=== PATIENT | male | born 1990 | race Caucasian/White ===

== ENCOUNTER 2020-06-04 18:57 | Emergency (ER) | payer MEDICAID, OTHER, SELFPAY ==
[~2020-06-04] VITALS: Ht 177.8 cm; Wt 70.7 kg
[2020-06-04] MEDS ORDERED: NS 1,000 ML IV ONE (19:40)
[2020-06-04 20:16] LABS: BASO # 0.1 10^3/uL (0.0-0.2); BASO % 1.1 % (0.0-1.0); EOS # 0.5 10^3/uL (0.0-0.5); EOS % 5.2 % (0.0-3.0); HEMATOCRIT 39.6 % (42.0-52.0); LYMPH # 2.2 10^3/uL (1.5-5.0); LYMPH % 21.9 % (24.0-44.0); MEAN CORPUSCULAR HEMOGLOBIN 29.4 pg (27.0-33.0); MEAN CORPUSCULAR HGB CONC 32.8 g/dl (32.0-36.5); MEAN CORPUSCULAR VOLUME 89.6 fl (80.0-96.0); MONO # 0.8 10^3/uL (0.0-0.8); MONO % 8.4 % (2.0-8.0); NEUTROPHILS # 6.3 10^3/uL (1.5-8.5); NEUTROPHILS % 63.1 % (36.0-66.0); PLATELET COUNT, AUTOMATED 354 10^3/uL (150-450); RED BLOOD COUNT 4.42 10^6/uL (4.30-6.10); WHITE BLOOD COUNT 9.9 10^3/uL (4.0-10.0)
[2020-06-04 20:25] LABS: BLOOD UREA NITROGEN 16 MG/DL (7-18); CARBON DIOXIDE LEVEL 32 MEQ/L (21-32); CHLORIDE LEVEL 104 MEQ/L (98-107); GLOMERULAR FILTRATION RATE > 60.0 (>60); GLUCOSE, FASTING 95 MG/DL (70-100); POTASSIUM SERUM 4.3 MEQ/L (3.5-5.1); SODIUM LEVEL 139 MEQ/L (136-145)
[2020-06-04] MEDS ORDERED: DALBAVANCIN 1,500 MG in D5W 250 ML IV ONE (22:30)
[2020-06-04 23:50] VITALS: BP 125/73
== END 2020-06-04 23:52 | disposition home or self-care (01) ==
LOC: M ED 18:57
DX: L03.116 Cellulitis of left lower limb (principal); F19.10 Other psychoactive substance abuse, uncomplicated
CPT/HCPCS: 80048; 83605; 85025; 87040; 87077; 87186; 93970; 96360; 96365; 99284; J0875

== ENCOUNTER 2022-06-26 11:16 | Inpatient (IN) | payer SELFPAY ==
[2022-06-26] VITALS (7 sets, daily range): BP systolic 119–141; BP diastolic 67–80; O2SAT 95–97
[~2022-06-26] VITALS: Ht 177.8 cm; Wt 76.1 kg
[2022-06-26] MEDS: NICOTINE 14 MG/24 HR TRANSDERMAL TD SCH (09:00)
[2022-06-26] MEDS ORDERED: ONDANSETRON 4MG 2ML VIAL IV ONE (11:35)
[2022-06-26] MEDS ORDERED: KETOROLAC 30 MG/ML 1ML VIAL IV ONE ×2 (11:35→18:00)
[2022-06-26] MEDS ORDERED: MORPHINE 4 MG/ML 1ML VIAL IV PRN (11:35)
[2022-06-26 11:58] LABS: VENOUS BASE EXCESS 0.6 (-2.0-2.0); VENOUS HCO3 26.6 MEQ/L (23.0-27.0); VENOUS O2 SATURATION 98.5 % (60.0-80.0); VENOUS PARTIAL PRESSURE CO2 48.3 mmHg (38.0-50.0); VENOUS PARTIAL PRESSURE O2 143.4 mmHg (30.0-50.0); VENOUS PH 7.359 UNITS (7.330-7.430); VENOUS TOTAL CO2 28.1 MEQ/L (24.0-28.0)
[2022-06-26 12:09] LABS: BASO # 0.2 10^3/uL (0.0-0.2); EOS # 0.7 10^3/uL (0.0-0.5); EOS % 4.1 % (0.0-3.0); HEMATOCRIT 38.8 % (42.0-52.0); HEMOGLOBIN 12.5 g/dl (13.5-17.5); LYMPH # 2.3 10^3/uL (1.5-5.0); LYMPH % 13.1 % (24.0-44.0); MEAN CORPUSCULAR HEMOGLOBIN 27.7 pg (27.0-33.0); MEAN CORPUSCULAR HGB CONC 32.2 g/dl (32.0-36.5); MONO # 1.3 10^3/uL (0.0-0.8); MONO % 7.2 % (2.0-8.0); NEUTROPHILS # 13.2 10^3/uL (1.5-8.5); NEUTROPHILS % 73.9 % (36.0-66.0); PLATELET COUNT, AUTOMATED 498 10^3/uL (150-450); RED BLOOD COUNT 4.51 10^6/uL (4.30-6.10); WHITE BLOOD COUNT 17.9 10^3/uL (4.0-10.0)
[2022-06-26 12:26] LABS: INR 1.06; PARTIAL THROMBOPLASTIN TIME 26.8 SECONDS (24.8-34.2)
[2022-06-26 12:30] LABS: AMYLASE 21 U/L (30-118)
[2022-06-26] MEDS ORDERED: MORPHINE 10 MG/ML 1ML VIAL IM ONE (12:30)
[2022-06-26 12:31] LABS: ALBUMIN 3.2 G/DL (3.2-5.2); ALKALINE PHOSPHATASE 106 U/L (46-116); ALT/SGPT 33 U/L (7.0-40); AST/SGOT 37 U/L (<34); BILIRUBIN,DIRECT 0.4 MG/DL (<0.4); BILIRUBIN,TOTAL 0.7 MG/DL (0.3-1.2); BLOOD UREA NITROGEN 11 MG/DL (9-23); CALCIUM LEVEL 8.3 MG/DL (8.5-10.1); CARBON DIOXIDE LEVEL 27 MMOL/L (20-31); CHLORIDE LEVEL 104 MMOL/L (98-107); CREATININE FOR GFR 0.65 MG/DL (0.70-1.30); GLOMERULAR FILTRATION RATE > 60.0 (>60); GLUCOSE, FASTING 112 MG/DL (60-100); POTASSIUM SERUM 4.1 MMOL/L (3.5-5.1); SODIUM LEVEL 136 MMOL/L (136-145); TOTAL PROTEIN 7.5 G/DL (5.7-8.2)
[2022-06-26] MEDS ORDERED: ISOVUE-370 76% 100ML VIAL As Ordered ONE (12:31)
[2022-06-26] MEDS ORDERED: PIPERACILLIN/TAZOBACTAM SOD 3.375 GM in D5W MINI-BAG PLUS 50 ML IV ONE (12:40)
[2022-06-26] MEDS ORDERED: VANCOMYCIN HCL 1,250 MG in NS 250 ML IV ONE (13:35)
[2022-06-26] MEDS ORDERED: VANCOMYCIN HCL 500 MG in D5W MINI-BAG PLUS 100 ML IV ONE ×2 (14:00→16:00)
[2022-06-26] MEDS ORDERED: VANCOMYCIN HCL 750 MG, VIAL MATE ADAPTER 1 EACH in D5W 250 ML IV ONE ×2 (14:00→16:00)
[2022-06-26 14:02] LABS: RSV AMPLIFICATION NEGATIVE (NEGATIVE)
[2022-06-26] MEDS ORDERED: NS 1,000 ML IV ONE ×2 (14:20→15:00)
[2022-06-26] MEDS ORDERED: MOM 30ML SUSPENSION UDC PO PRN (15:00)
[2022-06-26] MEDS ORDERED: ACETAMINOPHEN TAB 650MG DOSE (2X325MG) PO PRN (15:00)
[2022-06-26] MEDS ORDERED: SENOKOT S TAB PO PRN (15:00)
[2022-06-26] MEDS ORDERED: MIRALAX *UNIT DOSE* 17GM PACKET PO PRN (15:00)
[2022-06-26 15:25] LABS: LDH LACTATE DEHYDROGENASE 177 U/L (120-246)
[2022-06-26 15:26] LABS: CPK CREATINE PHOSPHOKINASE 288 U/L (46-171)
[2022-06-26] MEDS ORDERED: BISACODYL 10MG SUPP PR PRN (17:25)
[2022-06-26] MEDS ORDERED: PERCOCET 5MG/325MG TAB PO PRN (17:25)
[2022-06-26] MEDS ORDERED: LEVALBUTEROL 1.25MG 0.5ML CONCENTRATE NEB NEB PRN (17:25)
[2022-06-26 18:38] LABS: PH BODY FLUID 6.959 UNITS (NOT ESTABLISHED); SOURCE, BODY FLUID pH PLEURAL
[2022-06-26 18:42] LABS: SOURCE, BODY FLUID ALBUMIN PLEURAL
[2022-06-26 18:43] LABS: APPEARANCE, BODY FLUID CLOUDY (CLEAR); PLEURAL FL COLOR AMBER (COLORLESS); SOURCE, BODY FLUID PLEURAL
[2022-06-26 18:47] LABS: SOURCE, BODY FLUID GLUCOSE PLEURAL; SOURCE, BODY FLUID TRIG PLEURAL; TRIGLYCERIDE, BODY FLUID 26 MG/DL (NOT ESTABLISHED)
[2022-06-26 18:49] LABS: AMYLASE, BODY FLUID < 20 U/L (NOT ESTABLISHED); CHOLESTEROL, BODY FLUID 65 MG/DL (NOT ESTABLISHED); SOURCE, BODY FLUID AMYLASE PLEURAL; SOURCE, BODY FLUID CHOL PLEURAL; SOURCE, BODY FLUID TOT PROTEIN PLEURAL; TOTAL PROTEIN, BODY FLUID 5.8 G/DL (NOT ESTABLISHED)
[2022-06-26] MEDS: PIPERACILLIN/TAZOBACTAM SOD 3.375 GM in D5W MINI-BAG PLUS 50 ML IV SCH (18:50)
[2022-06-26] MEDS: KETOROLAC 30 MG/ML 1ML VIAL IV SCH ×2 (18:50→23:41)
[2022-06-26] MEDS ORDERED: HOME MED LIST COMPLETE! XX SCH (18:50)
[2022-06-26] MEDS: PERCOCET 5MG/325MG TAB PO PRN (18:53)
[2022-06-26 18:58] LABS: LDH, BODY FLUID > 700 U/L (NOT ESTABLISHED); SOURCE, BODY FLUID LDH PLEURAL
[2022-06-26] MEDS: LEVALBUTEROL 1.25MG 0.5ML CONCENTRATE NEB NEB SCH (20:20)
[2022-06-26] MEDS: guaiFENesin ER 600 MG TAB PO SCH (21:05)
[2022-06-26] MEDS: DOCUSATE SODIUM 100MG CAPSULE PO SCH (21:05)
[2022-06-27] VITALS (28 sets, daily range): BP systolic 108–133; BP diastolic 72–86; O2SAT 80–100
[2022-06-27] MEDS: LEVALBUTEROL 1.25MG 0.5ML CONCENTRATE NEB NEB SCH ×4 (01:22→21:12)
[2022-06-27] MEDS: PIPERACILLIN/TAZOBACTAM SOD 3.375 GM in D5W MINI-BAG PLUS 50 ML IV SCH ×3 (01:56→13:54)
[2022-06-27] MEDS: PERCOCET 5MG/325MG TAB PO PRN ×3 (01:59→19:59)
[2022-06-27] MEDS ORDERED: VANCOMYCIN HCL 1,000 MG, VIAL MATE ADAPTER 1 EACH in NS 250 ML IV SCH (03:00)
[2022-06-27 05:58] LABS: BASO # 0.1 10^3/uL (0.0-0.2); BASO % 0.6 % (0.0-1.0); EOS # 0.3 10^3/uL (0.0-0.5); EOS % 1.5 % (0.0-3.0); HEMATOCRIT 40.4 % (42.0-52.0); LYMPH # 1.4 10^3/uL (1.5-5.0); LYMPH % 7.2 % (24.0-44.0); MEAN CORPUSCULAR HGB CONC 32.2 g/dl (32.0-36.5); MEAN CORPUSCULAR VOLUME 87.1 fl (80.0-96.0); MONO # 1.1 10^3/uL (0.0-0.8); MONO % 5.9 % (2.0-8.0); NEUTROPHILS # 16.2 10^3/uL (1.5-8.5); NEUTROPHILS % 84.2 % (36.0-66.0); RED BLOOD COUNT 4.64 10^6/uL (4.30-6.10)
[2022-06-27 06:17] LABS: PLATELET COUNT, AUTOMATED 351 10^3/uL (150-450); WHITE BLOOD COUNT 19.2 10^3/uL (4.0-10.0)
[2022-06-27 06:23] LABS: BLOOD UREA NITROGEN 11 MG/DL (9-23); CALCIUM LEVEL 7.8 MG/DL (8.5-10.1); CARBON DIOXIDE LEVEL 26 MMOL/L (20-31); CHLORIDE LEVEL 104 MMOL/L (98-107); CREATININE FOR GFR 0.67 MG/DL (0.70-1.30); GLOMERULAR FILTRATION RATE > 60.0 (>60); GLUCOSE, FASTING 103 MG/DL (60-100); POTASSIUM SERUM 3.8 MMOL/L (3.5-5.1); SODIUM LEVEL 136 MMOL/L (136-145)
[2022-06-27] MEDS: KETOROLAC 30 MG/ML 1ML VIAL IV SCH ×4 (06:24→23:08)
[2022-06-27] MEDS: NICOTINE 14 MG/24 HR TRANSDERMAL TD SCH (08:13)
[2022-06-27] MEDS: PANTOPRAZOLE 40MG TAB (PROTONIX) PO SCH (08:13)
[2022-06-27] MEDS: guaiFENesin ER 600 MG TAB PO SCH ×2 (08:13→20:10)
[2022-06-27] MEDS: DOCUSATE SODIUM 100MG CAPSULE PO SCH ×2 (08:14→20:10)
[2022-06-27] MEDS: ENOXAPARIN 40MG/0.4ML SYRINGE (J1650 PER 10MG) SC SCH (08:14)
[2022-06-27 11:35] LABS: BARBITURATES URINE NEGATIVE (NEGATIVE); METHADONE URINE NEGATIVE (NEGATIVE)
[2022-06-27 11:36] LABS: BENZODIAZEPINES URINE NEGATIVE (NEGATIVE); PHENCYCLIDINE URINE NEGATIVE (NEGATIVE)
[2022-06-27 11:38] LABS: AMPHETAMINES LEVEL URINE POSITIVE (NEGATIVE); CANNABINOIDS URINE POSITIVE (NEGATIVE); COCAINE METABOLITE URINE POSITIVE (NEGATIVE); OPIATES URINE POSITIVE (NEGATIVE)
[2022-06-27] MEDS ORDERED: VANCOMYCIN HCL 750 MG, VIAL MATE ADAPTER 1 EACH in D5W 250 ML IV SCH ×4 (12:00)
[2022-06-27] MEDS: ONDANSETRON 4MG 2ML VIAL IV PRN ×3 (13:54→23:17)
[2022-06-27] MEDS: VANCOMYCIN HCL 1,000 MG, VIAL MATE ADAPTER 1 EACH in D5W 250 ML IV SCH ×2 (16:58→23:08)
[2022-06-27] MEDS ORDERED: NS 1,000 ML IV ONE (17:00)
[2022-06-27] MEDS ORDERED: NS 1,000 ML IV SCH (18:00)
[2022-06-27] MEDS: PIPERACILLIN/TAZOBACTAM SOD 4.5 GM in D5W MINI-BAG PLUS 50 ML IV SCH (20:01)
[2022-06-28] VITALS (17 sets, daily range): BP systolic 106–130; BP diastolic 60–79; O2SAT 91–96
[2022-06-28] MEDS: PERCOCET 5MG/325MG TAB PO PRN ×3 (00:11→20:26)
[2022-06-28] MEDS ORDERED: PROMETHAZINE 25MG/ML 1ML VIAL IV ONE (01:15)
[2022-06-28] MEDS: PIPERACILLIN/TAZOBACTAM SOD 4.5 GM in D5W MINI-BAG PLUS 50 ML IV SCH ×4 (02:05→20:24)
[2022-06-28] MEDS: LEVALBUTEROL 1.25MG 0.5ML CONCENTRATE NEB NEB SCH ×4 (02:42→20:34)
[2022-06-28] MEDS: KETOROLAC 30 MG/ML 1ML VIAL IV SCH ×3 (05:05→18:11)
[2022-06-28] MEDS: ONDANSETRON 4MG 2ML VIAL IV PRN (06:00)
[2022-06-28 07:13] LABS: BASO # 0.1 10^3/uL (0.0-0.2); BASO % 0.3 % (0.0-1.0); EOS # 0.1 10^3/uL (0.0-0.5); EOS % 0.7 % (0.0-3.0); HEMATOCRIT 36.3 % (42.0-52.0); LYMPH # 1.3 10^3/uL (1.5-5.0); LYMPH % 7.9 % (24.0-44.0); MEAN CORPUSCULAR HGB CONC 33.1 g/dl (32.0-36.5); MEAN CORPUSCULAR VOLUME 84.6 fl (80.0-96.0); MONO # 0.9 10^3/uL (0.0-0.8); MONO % 5.7 % (2.0-8.0); NEUTROPHILS # 13.5 10^3/uL (1.5-8.5); PLATELET COUNT, AUTOMATED 399 10^3/uL (150-450); RED BLOOD COUNT 4.29 10^6/uL (4.30-6.10); WHITE BLOOD COUNT 15.9 10^3/uL (4.0-10.0)
[2022-06-28] MEDS: VANCOMYCIN HCL 1,000 MG, VIAL MATE ADAPTER 1 EACH in D5W 250 ML IV SCH ×2 (07:41→16:16)
[2022-06-28 07:44] LABS: VANCOMYCIN LEVEL TROUGH 10.4 UG/ML (10.0-20.0)
[2022-06-28 07:45] LABS: BLOOD UREA NITROGEN 8 MG/DL (9-23); CARBON DIOXIDE LEVEL 31 MMOL/L (20-31); CHLORIDE LEVEL 101 MMOL/L (98-107); CREATININE FOR GFR 0.57 MG/DL (0.70-1.30); GLOMERULAR FILTRATION RATE > 60.0 (>60); GLUCOSE, FASTING 96 MG/DL (60-100); POTASSIUM SERUM 3.3 MMOL/L (3.5-5.1); SODIUM LEVEL 136 MMOL/L (136-145)
[2022-06-28] MEDS ORDERED: METHADONE 5MG TAB PO SCH (09:00)
[2022-06-28] MEDS: NICOTINE 14 MG/24 HR TRANSDERMAL TD SCH (09:30)
[2022-06-28] MEDS: METOCLOPRAMIDE INJ 10MG/2ML VIAL IV SCH ×3 (09:30→20:24)
[2022-06-28] MEDS: DOCUSATE SODIUM 100MG CAPSULE PO SCH ×2 (09:31→20:25)
[2022-06-28] MEDS: PANTOPRAZOLE 40MG TAB (PROTONIX) PO SCH (09:31)
[2022-06-28] MEDS: guaiFENesin ER 600 MG TAB PO SCH ×2 (09:31→20:27)
[2022-06-28] MEDS: ENOXAPARIN 40MG/0.4ML SYRINGE (J1650 PER 10MG) SC SCH (09:31)
[2022-06-28] MEDS: KCL 40MEQ IN D5/0.45NS 1000ML 1,000 ML IV SCH ×2 (09:31→22:15)
[2022-06-28] MEDS ORDERED: METHADONE 10MG TAB PO ONE (10:20)
[2022-06-29] VITALS (11 sets, daily range): BP systolic 113–127; BP diastolic 69–82; O2SAT 95–100
[2022-06-29] MEDS: KETOROLAC 30 MG/ML 1ML VIAL IV SCH ×4 (00:41→17:59)
[2022-06-29] MEDS: VANCOMYCIN HCL 1,000 MG, VIAL MATE ADAPTER 1 EACH in D5W 250 ML IV SCH (00:41)
[2022-06-29] MEDS: PERCOCET 5MG/325MG TAB PO PRN ×3 (00:44→20:33)
[2022-06-29] MEDS: LEVALBUTEROL 1.25MG 0.5ML CONCENTRATE NEB NEB SCH ×4 (01:46→20:29)
[2022-06-29] MEDS: PIPERACILLIN/TAZOBACTAM SOD 4.5 GM in D5W MINI-BAG PLUS 50 ML IV SCH ×4 (02:03→21:19)
[2022-06-29] MEDS: METOCLOPRAMIDE INJ 10MG/2ML VIAL IV SCH ×4 (02:03→20:33)
[2022-06-29 07:47] LABS: BASO # 0.1 10^3/uL (0.0-0.2); BASO % 0.5 % (0.0-1.0); EOS # 0.3 10^3/uL (0.0-0.5); EOS % 2.2 % (0.0-3.0); HEMATOCRIT 33.7 % (42.0-52.0); LYMPH # 1.9 10^3/uL (1.5-5.0); LYMPH % 14.1 % (24.0-44.0); MEAN CORPUSCULAR HEMOGLOBIN 28.1 pg (27.0-33.0); MEAN CORPUSCULAR HGB CONC 32.6 g/dl (32.0-36.5); NEUTROPHILS # 10.4 10^3/uL (1.5-8.5); NEUTROPHILS % 75.5 % (36.0-66.0); PLATELET COUNT, AUTOMATED 406 10^3/uL (150-450); RED BLOOD COUNT 3.92 10^6/uL (4.30-6.10); WHITE BLOOD COUNT 13.8 10^3/uL (4.0-10.0)
[2022-06-29 08:12] LABS: BLOOD UREA NITROGEN 5 MG/DL (9-23); CALCIUM LEVEL 7.8 MG/DL (8.5-10.1); CARBON DIOXIDE LEVEL 28 MMOL/L (20-31); CHLORIDE LEVEL 108 MMOL/L (98-107); GLOMERULAR FILTRATION RATE > 60.0 (>60); GLUCOSE, FASTING 98 MG/DL (60-100); POTASSIUM SERUM 4.2 MMOL/L (3.5-5.1); SODIUM LEVEL 141 MMOL/L (136-145)
[2022-06-29] MEDS: ENOXAPARIN 40MG/0.4ML SYRINGE (J1650 PER 10MG) SC SCH (08:58)
[2022-06-29] MEDS: guaiFENesin ER 600 MG TAB PO SCH ×2 (08:58→20:33)
[2022-06-29] MEDS: PANTOPRAZOLE 40MG TAB (PROTONIX) PO SCH (08:59)
[2022-06-29] MEDS: DOCUSATE SODIUM 100MG CAPSULE PO SCH ×2 (08:59→20:33)
[2022-06-29] MEDS: NICOTINE 14 MG/24 HR TRANSDERMAL TD SCH (08:59)
[2022-06-29] MEDS ORDERED: METHADONE 5MG TAB PO SCH (09:00)
[2022-06-29] MEDS: VANCOMYCIN HCL 750 MG, VIAL MATE ADAPTER 1 EACH in D5W 250 ML IV SCH ×2 (10:10→16:46)
[2022-06-29] MEDS: KCL 40MEQ IN D5/0.45NS 1000ML 1,000 ML IV SCH (10:10)
[2022-06-29] MEDS: VANCOMYCIN HCL 500 MG in D5W MINI-BAG PLUS 100 ML IV SCH ×2 (11:47→18:36)
[2022-06-29] MEDS: METOPROLOL TART 25 MG TABLET PO SCH ×2 (12:00→18:00)
[2022-06-29] MEDS ORDERED: METHADONE 5MG TAB PO ONE (15:00)
[2022-06-30] VITALS: O2SAT 98
[2022-06-30] MEDS: METOPROLOL TART 25 MG TABLET PO SCH ×3 (00:21→12:00)
[2022-06-30] MEDS: KETOROLAC 30 MG/ML 1ML VIAL IV SCH ×3 (00:22→11:17)
[2022-06-30] MEDS: VANCOMYCIN HCL 750 MG, VIAL MATE ADAPTER 1 EACH in D5W 250 ML IV SCH ×2 (00:22→09:46)
[2022-06-30] MEDS: PERCOCET 5MG/325MG TAB PO PRN (01:05)
[2022-06-30] MEDS: LEVALBUTEROL 1.25MG 0.5ML CONCENTRATE NEB NEB SCH ×3 (01:16→13:03)
[2022-06-30] MEDS ORDERED: LORazepam 2 MG/ML 1ML VIAL IV STA (01:17)
[2022-06-30] MEDS: VANCOMYCIN HCL 500 MG in D5W MINI-BAG PLUS 100 ML IV SCH ×2 (01:40→11:16)
[2022-06-30] MEDS: METOCLOPRAMIDE INJ 10MG/2ML VIAL IV SCH ×2 (02:58→08:52)
[2022-06-30] MEDS: PIPERACILLIN/TAZOBACTAM SOD 4.5 GM in D5W MINI-BAG PLUS 50 ML IV SCH ×3 (02:58→13:41)
[2022-06-30 03:34] VITALS: BP 131/81
[2022-06-30] MEDS ORDERED: cloNIDine 0.1MG TABLET PO ONE (03:45)
[2022-06-30] MEDS ORDERED: diazePAM 10MG/2ML SYRINGE IV ONE (03:45)
[2022-06-30 05:50] VITALS: BP 122/82
[2022-06-30 08:11] VITALS: BP 128/76
[2022-06-30] MEDS: PANTOPRAZOLE 40MG TAB (PROTONIX) PO SCH (08:29)
[2022-06-30] MEDS: guaiFENesin ER 600 MG TAB PO SCH (08:29)
[2022-06-30] MEDS: NICOTINE 14 MG/24 HR TRANSDERMAL TD SCH (08:30)
[2022-06-30] MEDS: ENOXAPARIN 40MG/0.4ML SYRINGE (J1650 PER 10MG) SC SCH (08:30)
[2022-06-30] MEDS: DOCUSATE SODIUM 100MG CAPSULE PO SCH (08:52)
[2022-06-30] MEDS ORDERED: METHADONE 10MG TAB PO SCH ×2 (09:00)
[2022-07-01 16:08] LABS: BODY FLUID CULTURE Not indicated. (.); LEGIONELLA ANTIGEN URINE Negative (Negative); ORGANISM ID Not indicated. (.); SPECIMEN SOURCE Urine (.); URINE STREP PNEUMONIAE ANTIGEN Negative (Negative)
== END 2022-06-30 15:24 | disposition left against medical advice (07) | DRG 720 ==
LOC: EDBD 11:16 → M ED 11:16 → M ED INP 14:54 → ENRESERVTM 16:52 → ENRESERVDT 16:52 → M PCU 17:45
PROVIDERS: ADMIT General Practice; ATTEND General Practice
PROC: 0W9B30Z Drainage of Left Pleural Cavity with Drainage Device, Percutaneous Approach (ICD-10-PCS; principal; 2022-06-26 16:39)
DX: A41.9 Sepsis, unspecified organism (principal); J86.9 Pyothorax without fistula; J15.6 Pneumonia due to other Gram-negative bacteria; J91.8 Pleural effusion in other conditions classified elsewhere; I38 Endocarditis, valve unspecified; F17.210 Nicotine dependence, cigarettes, uncomplicated; F16.10 Hallucinogen abuse, uncomplicated; F11.13 Opioid abuse with withdrawal; Z20.822 Contact with and (suspected) exposure to COVID-19; Z71.6 Tobacco abuse counseling; Z71.51 Drug abuse counseling and surveillance of drug abuser; E87.6 Hypokalemia

== ENCOUNTER → 2024-03-02 | Outpatient (CLI) | payer SELFPAY | LOC: M SOG 07:53 | PROVIDERS: ATTEND Physician Assistant | DX: M79.642 Pain in left hand (principal); S62.612A Displaced fracture of proximal phalanx of right middle finger, initial encounter for closed fracture; X58.XXXA Exposure to other specified factors, initial encounter; Y92.9 Unspecified place or not applicable; Y93.9 Activity, unspecified; Y99.9 Unspecified external cause status ==

== ENCOUNTER → 2024-03-17 | Outpatient (CLI) | payer SELFPAY | LOC: M SOG 07:48 | PROVIDERS: ATTEND Physician Assistant | DX: M79.642 Pain in left hand (principal) ==